=== PATIENT | female | born 1940 | race African-American/Black ===

== ENCOUNTER 2021-11-25 10:49 | Inpatient (IN) | payer MEDICARE, MEDICAID ==
[~2021-11-25] VITALS: Ht 157.5 cm; Wt 58.2 kg
[~2021-11-25 10:49] MED LIST: UNKNOWN MEDS
[2021-11-25] MEDS ORDERED: SODIUM CHLORIDE 0.9% 1,000 ML IV ONE (11:45)
[2021-11-25 12:04] LABS: BASOPHILS % 0.2 % (0.0-2.0); EOSINOPHILS % 1.5 % (0.0-5.0); HEMATOCRIT. 39.5 % (36.0-48.0); HEMOGLOBIN. 13.1 g/dL (12.0-16.0); LYMPHOCYTES % 12.4 % (20.0-50.0); MEAN CORPUSCULAR HEMOGLOBIN 24.3 pg (28.0-32.0); MEAN CORPUSCULAR VOLUME 73.3 fL (81.0-99.0); MEAN PLATELET VOLUME 7.8 fl (7.4-10.4); MONOCYTES % 7.9 % (2.0-8.0); PLATELET 314 x1000/uL (130-400); RED BLOOD CELL COUNT 5.39 mill/uL (4.2-5.4); RED CELL DISTRIBUTION WIDTH 21.8 % (11.6-14.6)
[2021-11-25 12:18] LABS: CHLORIDE 102 mEq/L (98-107)
[2021-11-25 12:22] LABS: PROTHROMBIN TIME 11.2 sec (9.6-11.0)
[2021-11-25] MEDS ORDERED: POTASSIUM CHLORIDE 20MEQ TABLET SR PO ONE (12:45)
[2021-11-25] MEDS ORDERED: ASPIRIN 325MG EC TABLET PO NR (13:30)
[2021-11-25] MEDS ORDERED: MORPHINE SULFATE 2 MG/ML CPJ (NOT FOR IM USE) IV PRN (15:30)
[2021-11-25] MEDS ORDERED: DIPHENHYDRAMINE 50MG/ML VIAL IV PRN (15:30)
[2021-11-25] MEDS ORDERED: ONDANSETRON HCL 4MG/2ML INJ IV PRN (15:30)
[2021-11-25] MEDS ORDERED: IPRATROPIUM/ALBUTEROL 0.5-3(2.5)MG/3ML NEB HHN PRN (15:30)
[2021-11-25] MEDS ORDERED: NALOXONE HCL 0.4MG/ML VIAL IV PRN (15:30)
[2021-11-25] MEDS ORDERED: CLONIDINE 0.1MG TABLET PO PRN (15:30)
[2021-11-25] MEDS: SODIUM CHLORIDE 0.9% 1,000 ML IV SCH (16:09)
[2021-11-25 17:43] LABS: TOTAL IRON BINDING CAPACITY 358 ug/dL (250-450)
[2021-11-25 17:56] LABS: FERRITIN 41 ng/mL (10-291)
[2021-11-25 18:24] LABS: FOLIC ACID (FOLATE) SERUM >20 ng/mL ng/mL (>5.38)
[2021-11-25] MEDS: PANTOPRAZOLE SODIUM 40 MG/VIAL IV SCH (18:45)
[2021-11-25] MEDS: DOCUSATE SODIUM 100MG CAPSULE PO SCH (18:45)
[2021-11-25 21:19] LABS: VITAMIN B12 SERUM 1283 pg/mL (211-911)
[2021-11-25] MEDS ORDERED: DEXTROSE 50% WATER 50ML SYRINGE IV PRN (22:45)
[2021-11-26 05:55] LABS: CHLORIDE 107 mEq/L (98-107)
[2021-11-26 05:56] LABS: BASOPHILS % 0.3 % (0.0-2.0); EOSINOPHILS % 2.8 % (0.0-5.0); HEMATOCRIT. 34.7 % (36.0-48.0); HEMOGLOBIN. 11.7 g/dL (12.0-16.0); LYMPHOCYTES % 16.3 % (20.0-50.0); MEAN CORPUSCULAR HEMOGLOBIN 24.6 pg (28.0-32.0); MEAN CORPUSCULAR VOLUME 73.2 fL (81.0-99.0); MEAN PLATELET VOLUME 8.1 fl (7.4-10.4); NEUTROPHILS % 72.6 % (40.0-76.0); PLATELET 252 x1000/uL (130-400); RED BLOOD CELL COUNT 4.74 mill/uL (4.2-5.4); RED CELL DISTRIBUTION WIDTH 21.6 % (11.6-14.6)
[2021-11-26] MEDS: INSULIN LISPRO (LOW DOSE) 100 UNITS/ML SUBCUT SCH ×4 (07:00→18:48)
[2021-11-26] MEDS: BLOOD SUGAR DIAGNOSTIC STRIP TEST SCH ×4 (07:07→18:48)
[2021-11-26] MEDS: PANTOPRAZOLE SODIUM 40 MG/VIAL IV SCH ×2 (07:25→18:48)
[2021-11-26] MEDS ORDERED: POTASSIUM CHLORIDE INJ 40 MEQ in DEXT 5% WATER 250 ML IV ONE (07:30)
[2021-11-26] MEDS ORDERED: KCL 20MEQ/100ML X 2 FOR TOTAL KCL 40MEQ/200ML IV SCH (09:00)
[2021-11-26 09:20] LABS: PHOSPHORUS 2.5 mg/dL (2.5-4.9)
[2021-11-26] MEDS ORDERED: LORAZEPAM 2MG/ML CPJ IV PRN (10:30)
[2021-11-26] MEDS ORDERED: POTASSIUM CHLORIDE 20MEQ TABLET SR PO NR (10:30)
[2021-11-26] MEDS: DOCUSATE SODIUM 100MG CAPSULE PO SCH ×2 (10:57→18:48)
[2021-11-26] MEDS: SODIUM CHLORIDE 0.9% 1,000 ML IV SCH (11:08)
[2021-11-26 13:40] LABS: CREATINE KINASE > 14000 IU/L (26-192)
[2021-11-26] MEDS: KCL 20MEQ/100ML X 2 FOR TOTAL KCL 40MEQ/200ML IV SCH ×2 (14:13→16:14)
[2021-11-27] VITALS (7 sets, daily range): BP systolic 97–128; BP diastolic 60–74
[2021-11-27] MEDS: PANTOPRAZOLE SODIUM 40 MG/VIAL IV SCH (06:00)
[2021-11-27] MEDS: INSULIN LISPRO (LOW DOSE) 100 UNITS/ML SUBCUT SCH ×4 (06:40→22:25)
[2021-11-27] MEDS: BLOOD SUGAR DIAGNOSTIC STRIP TEST SCH ×4 (06:40→21:35)
[2021-11-27 06:56] LABS: BASOPHILS % 0.3 % (0.0-2.0); EOSINOPHILS % 3.8 % (0.0-5.0); HEMATOCRIT. 36.6 % (36.0-48.0); HEMOGLOBIN. 12.2 g/dL (12.0-16.0); LYMPHOCYTES % 13.8 % (20.0-50.0); MEAN CORPUSCULAR HEMOGLOBIN 24.1 pg (28.0-32.0); MEAN CORPUSCULAR VOLUME 72.3 fL (81.0-99.0); MONOCYTES % 8.5 % (2.0-8.0); NEUTROPHILS % 73.6 % (40.0-76.0); PLATELET 275 x1000/uL (130-400); RED BLOOD CELL COUNT 5.07 mill/uL (4.2-5.4); RED CELL DISTRIBUTION WIDTH 21.3 % (11.6-14.6)
[2021-11-27 07:08] LABS: ANTI-NUCLEAR ANTIBODIES DIRECT Negative (Negative)
[2021-11-27 07:12] LABS: CHLORIDE 108 mEq/L (98-107)
[2021-11-27 07:20] LABS: PHOSPHORUS 2.2 mg/dL (2.5-4.9)
[2021-11-27] MEDS: DOCUSATE SODIUM 100MG CAPSULE PO SCH ×2 (08:44→17:06)
[2021-11-27] MEDS: SODIUM CHLORIDE 0.9% 1,000 ML IV SCH (12:00)
[2021-11-27] MEDS ORDERED: POTASSIUM PHOS,M-BASIC-D-BASIC 20 MMOL in DEXT 5% WATER 243.3333 ML IV NR (13:00)
[2021-11-27] MEDS: PANTOPRAZOLE 40MG DR TABLET PO SCH (21:35)
[2021-11-28] VITALS: BP 96/47
[2021-11-28] MEDS: SODIUM CHLORIDE 0.9% 1,000 ML IV SCH ×2 (03:30→21:47)
[2021-11-28 04:00] VITALS: BP 104/57
[2021-11-28] MEDS: BLOOD SUGAR DIAGNOSTIC STRIP TEST SCH ×4 (06:16→21:43)
[2021-11-28] MEDS: INSULIN LISPRO (LOW DOSE) 100 UNITS/ML SUBCUT SCH ×4 (06:16→21:00)
[2021-11-28] MEDS: PANTOPRAZOLE 40MG DR TABLET PO SCH ×2 (06:16→21:45)
[2021-11-28 07:35] LABS: BASOPHILS % 0.3 % (0.0-2.0); EOSINOPHILS % 2.8 % (0.0-5.0); HEMATOCRIT. 35.6 % (36.0-48.0); LYMPHOCYTES % 16.3 % (20.0-50.0); MEAN CORPUSCULAR HEMOGLOBIN 24.4 pg (28.0-32.0); MEAN CORPUSCULAR VOLUME 72.8 fL (81.0-99.0); MEAN PLATELET VOLUME 8.3 fl (7.4-10.4); MONOCYTES % 7.2 % (2.0-8.0); NEUTROPHILS % 73.4 % (40.0-76.0); PLATELET 289 x1000/uL (130-400); RED CELL DISTRIBUTION WIDTH 21.2 % (11.6-14.6)
[2021-11-28 07:46] LABS: CHLORIDE 106 mEq/L (98-107)
[2021-11-28 07:56] LABS: PHOSPHORUS 2.9 mg/dL (2.5-4.9)
[2021-11-28] MEDS: DOCUSATE SODIUM 100MG CAPSULE PO SCH ×2 (09:01→17:29)
[2021-11-28] MEDS ORDERED: DABI150C PO (10:02)
[2021-11-28] MEDS ORDERED: MULT-1195 MT (10:15)
[2021-11-28] MEDS ORDERED: METF-873 PO (10:15)
[2021-11-28] MEDS ORDERED: ROSU40TA PO (10:15)
[2021-11-28] MEDS ORDERED: CELE-84 PO (10:15)
[2021-11-28] MEDS ORDERED: CHOL400D7 PO (10:15)
[2021-11-28] MEDS ORDERED: CLOP75TA33 PO (10:15)
[2021-11-28] MEDS ORDERED: PANT40TA51 PO (10:15)
[2021-11-28] MEDS ORDERED: LIDOCAINE HCL 1% 20ML VIAL (Pyxis) INJ ONE (10:36)
[2021-11-28 12:00] VITALS: BP 134/64
[2021-11-28] MEDS ORDERED: POTASSIUM PHOS,M-BASIC-D-BASIC 20 MMOL in DEXT 5% WATER 243.3333 ML IV SCH (12:00)
[2021-11-28] MEDS ORDERED: IOHEXOL-350 100 ML BOTTLE ONE (13:04)
[2021-11-28] MEDS ORDERED: BISACODYL 10MG SUPP PR NR (14:15)
[2021-11-28] MEDS ORDERED: BISACODYL 5MG TABLET PO NR (14:15)
[2021-11-28] MEDS: DEXAMETHASONE 4MG/ML 1ML VIAL IV SCH ×2 (17:29→23:20)
[2021-11-28 20:00] VITALS: BP 93/58
[2021-11-28] MEDS: SENNOSIDES/DOCUSATE SOD 8.6/50MG TABLET PO SCH (21:00)
[2021-11-29] VITALS (48 sets, daily range): BP systolic 85–143; BP diastolic 38–80
[2021-11-29] MEDS: PANTOPRAZOLE 40MG DR TABLET PO SCH ×2 (05:44→18:28)
[2021-11-29] MEDS: INSULIN LISPRO (LOW DOSE) 100 UNITS/ML SUBCUT SCH ×4 (05:45→21:00)
[2021-11-29] MEDS: BLOOD SUGAR DIAGNOSTIC STRIP TEST SCH ×4 (05:45→21:00)
[2021-11-29] MEDS: DEXAMETHASONE 4MG/ML 1ML VIAL IV SCH ×2 (05:51→14:10)
[2021-11-29] MEDS ORDERED: GENTAMICIN SULF 40MG/ML 2ML VIAL ONE (06:37)
[2021-11-29] MEDS ORDERED: POLYMYXIN B SULFATE 500000 UNITS/VIAL ONE (06:37)
[2021-11-29] MEDS ORDERED: THROMBIN (BOVINE) 5000 UNITS/VIAL TOP ONE (06:37)
[2021-11-29] MEDS ORDERED: LIDOCAINE HCL/EPINEPHRINE 1%-EPI 1:100,000 20 ML VIAL ONE ×2 (06:37→06:38)
[2021-11-29] MEDS ORDERED: ROCURONIUM BROMIDE 10MG/ML VIAL 5ML IV ONE (07:41)
[2021-11-29] MEDS ORDERED: ALBUMIN HUMAN 25GM/100ML (25%) IV ONE (08:02)
[2021-11-29] MEDS ORDERED: FENTANYL CITRATE/PF 50MCG/ML 2ML VIAL ONE (08:17)
[2021-11-29] MEDS ORDERED: CALCIUM CHLORIDE 1GM/10ML SYR IV ONE (08:18)
[2021-11-29] MEDS ORDERED: CEFAZOLIN SODIUM 1000MG/VIAL ONE ×2 (08:43)
[2021-11-29] MEDS ORDERED: DEXAMETHASONE 4MG/ML 1ML VIAL ONE ×2 (08:43→13:56)
[2021-11-29] MEDS: DOCUSATE SODIUM 100MG CAPSULE PO SCH ×2 (09:00→17:00)
[2021-11-29] MEDS ORDERED: NEOSTIGMINE METHYLSULFATE 1MG/ML 10 ML VIAL ONE (09:09)
[2021-11-29] MEDS ORDERED: GLYCOPYRROLATE 0.2 MG/ML 2ML VIAL ONE ×2 (09:09)
[2021-11-29] MEDS ORDERED: HYDRALAZINE 20MG/ML VIAL ONE (09:26)
[2021-11-29] MEDS: METOPROLOL TARTRATE 5MG/5ML VIAL IV NR (09:52)
[2021-11-29] MEDS ORDERED: NICARDIPINE 100 MG in SODIUM CHLORIDE 0.9% 60 ML IV PRN (10:00)
[2021-11-29] MEDS ORDERED: ALBUMIN HUMAN 25GM/100ML (25%) IV NR (10:45)
[2021-11-29] MEDS ORDERED: FENTANYL CITRATE/PF 2,500 MCG in SODIUM CHLORIDE 0.9% 200 ML IV PRN (10:45)
[2021-11-29] MEDS ORDERED: PHENYLEPHRINE 100 MG in DEXT 5% WATER 240 ML IV PRN (10:45)
[2021-11-29] MEDS ORDERED: MIDAZOLAM HCL 100 MG in SODIUM CHLORIDE 0.9% 80 ML IV PRN (10:45)
[2021-11-29 11:40] LABS: BG BASE EXCESS -6.3 mmol/L (-2.0-2.0); BG CARBOXYHEMOGLOBIN 0.3 % (0.5-1.5); BG DEOXYHEMOGLOBIN 0.7 % (0.0-5.0); BG FRACTION INSPIRED OXYGEN 100; BG HCO3 ACT 17.9 mmol/L (22.0-26.0); BG METHEMOGLOBIN 0.4 % (0.0-1.5); BG OXYGEN SATURATION 99.3 % (92.0-98.5); BG OXYHEMOGLOBIN 98.6 % (94.0-97.0); BG SAMPLE SITE ALINE; BG TOTAL HEMOGLOBIN 10.5 g/dL (12.0-18.0); BG VENT MODE VENT - CPAP
[2021-11-29] MEDS ORDERED: SODIUM BICARBONATE 8.4% 1 MEQ/ML 50ML SYR IV SCH (12:00)
[2021-11-29] MEDS: MORPHINE SULFATE 4 MG/ML CPJ (NOT FOR IM USE) IV PRN ×2 (12:28→20:36)
[2021-11-29 13:53] LABS: BG BASE EXCESS -2.7 mmol/L (-2.0-2.0); BG CARBOXYHEMOGLOBIN 0.2 % (0.5-1.5); BG DEOXYHEMOGLOBIN 2.8 % (0.0-5.0); BG FRACTION INSPIRED OXYGEN 32; BG HCO3 ACT 21.9 mmol/L (22.0-26.0); BG METHEMOGLOBIN 0.6 % (0.0-1.5); BG OXYGEN SATURATION 97.2 % (92.0-98.5); BG OXYHEMOGLOBIN 96.4 % (94.0-97.0); BG PCO2 36.8 mmHg (35.0-45.0); BG PH 7.392 (7.350-7.450); BG PO2 109.4 mmHg (75.0-100.0); BG SAMPLE SITE ALINE; BG TOTAL HEMOGLOBIN 9.4 g/dL (12.0-18.0); BG VENT MODE NASAL CANNULA
[2021-11-29] MEDS ORDERED: CEFAZOLIN SODIUM 1000MG/VIAL IV SCH (14:00)
[2021-11-29] MEDS: CEFAZOLIN 1000MG PREMIX 50 ML IV SCH ×2 (14:28→22:05)
[2021-11-29 15:04] LABS: MEAN CORPUSCULAR HEMOGLOBIN 24.6 pg (28.0-32.0); MEAN CORPUSCULAR VOLUME 74.5 fL (81.0-99.0); MEAN PLATELET VOLUME 7.9 fl (7.4-10.4); PLATELET 211 x1000/uL (130-400); RED BLOOD CELL COUNT 3.83 mill/uL (4.2-5.4); RED CELL DISTRIBUTION WIDTH 21.1 % (11.6-14.6)
[2021-11-29 15:06] LABS: HEMATOCRIT. 28.5 % (36.0-48.0); HEMOGLOBIN. 9.4 g/dL (12.0-16.0)
[2021-11-29 15:40] LABS: PLATELET ESTIMATE NORMAL
[2021-11-29 16:31] LABS: CHLORIDE 110 mEq/L (98-107)
[2021-11-29] MEDS: DEXT 5%/LACTATED RINGERS 1,000 ML IV SCH (17:18)
[2021-11-29 17:30] LABS: PHOSPHORUS 3.2 mg/dL (2.5-4.9)
[2021-11-29] MEDS: KCL 20MEQ/100ML PREMIX 100 ML IV SCH ×2 (18:16→21:17)
[2021-11-29] MEDS: SENNOSIDES/DOCUSATE SOD 8.6/50MG TABLET PO SCH (22:05)
[2021-11-30] VITALS (53 sets, daily range): BP systolic 90–125; BP diastolic 42–74
[2021-11-30] MEDS: DEXT 5%/LACTATED RINGERS 1,000 ML IV SCH ×2 (03:59→12:20)
[2021-11-30] MEDS: ACETAMINOPHEN 325MG TABLET PO PRN ×2 (04:00→15:13)
[2021-11-30 04:13] LABS: HEMOGLOBIN. 9.2 g/dL (12.0-16.0); MEAN CORPUSCULAR HEMOGLOBIN 24.7 pg (28.0-32.0); MEAN CORPUSCULAR VOLUME 74.9 fL (81.0-99.0); MEAN PLATELET VOLUME 8.1 fl (7.4-10.4); PLATELET 231 x1000/uL (130-400); RED BLOOD CELL COUNT 3.74 mill/uL (4.2-5.4); RED CELL DISTRIBUTION WIDTH 20.9 % (11.6-14.6)
[2021-11-30 04:16] LABS: CHLORIDE 110 mEq/L (98-107)
[2021-11-30 04:21] LABS: PHOSPHORUS 2.8 mg/dL (2.5-4.9)
[2021-11-30] MEDS: BLOOD SUGAR DIAGNOSTIC STRIP TEST SCH ×4 (05:38→20:20)
[2021-11-30] MEDS: CEFAZOLIN 1000MG PREMIX 50 ML IV SCH ×2 (06:11→15:05)
[2021-11-30] MEDS: INSULIN LISPRO (LOW DOSE) 100 UNITS/ML SUBCUT SCH ×4 (06:11→20:20)
[2021-11-30] MEDS ORDERED: POTASSIUM CHLORIDE INJ 40 MEQ in DEXT 5% WATER 250 ML IV ONE (08:30)
[2021-11-30] MEDS: PANTOPRAZOLE SODIUM 40 MG/VIAL IV SCH (08:34)
[2021-11-30] MEDS: DOCUSATE SODIUM 100MG CAPSULE PO SCH ×2 (08:37→17:50)
[2021-11-30] MEDS: METOPROLOL TARTRATE 5MG/5ML VIAL IV NR (09:25)
[2021-11-30] MEDS: KCL 20MEQ/100ML X 2 FOR TOTAL KCL 40MEQ/200ML IV SCH ×2 (09:56→12:19)
[2021-11-30] MEDS ORDERED: POTASSIUM CHLORIDE 20MEQ TABLET SR PO SCH (10:00)
[2021-11-30] MEDS ORDERED: THROAT LOZENGES-BENZOCAINE/MENTH/CETYLPYRD CL LOZENGES MM PRN (10:00)
[2021-11-30 10:32] LABS: PLATELET ESTIMATE NORMAL
[2021-11-30] MEDS ORDERED: PHENOL/SODIUM PHENOLATE 1.4% SRPAY 177ML MM PRN (11:00)
[2021-11-30] MEDS: SENNOSIDES/DOCUSATE SOD 8.6/50MG TABLET PO SCH (20:20)
[2021-12-01] VITALS (12 sets, daily range): BP systolic 81–120; BP diastolic 32–78
[2021-12-01] MEDS: ACETAMINOPHEN 325MG TABLET PO PRN ×4 (01:36→22:46)
[2021-12-01] MEDS: DEXT 5%/LACTATED RINGERS 1,000 ML IV SCH ×3 (01:36→18:58)
[2021-12-01 05:58] LABS: BASOPHILS % 0.1 % (0.0-2.0); EOSINOPHILS % 2.3 % (0.0-5.0); HEMATOCRIT. 27.9 % (36.0-48.0); HEMOGLOBIN. 9.1 g/dL (12.0-16.0); LYMPHOCYTES % 12.2 % (20.0-50.0); MEAN CORPUSCULAR HEMOGLOBIN 24.7 pg (28.0-32.0); MEAN CORPUSCULAR VOLUME 76.2 fL (81.0-99.0); MEAN PLATELET VOLUME 8.2 fl (7.4-10.4); NEUTROPHILS % 76.4 % (40.0-76.0); PLATELET 190 x1000/uL (130-400); RED BLOOD CELL COUNT 3.66 mill/uL (4.2-5.4); RED CELL DISTRIBUTION WIDTH 21.3 % (11.6-14.6)
[2021-12-01] MEDS: BLOOD SUGAR DIAGNOSTIC STRIP TEST SCH ×3 (06:18→21:00)
[2021-12-01 06:26] LABS: CHLORIDE 110 mEq/L (98-107)
[2021-12-01 06:35] LABS: PHOSPHORUS 1.9 mg/dL (2.5-4.9)
[2021-12-01] MEDS: INSULIN LISPRO (LOW DOSE) 100 UNITS/ML SUBCUT SCH ×4 (06:39→21:46)
[2021-12-01] MEDS: DOCUSATE SODIUM 100MG CAPSULE PO SCH ×3 (08:03→18:57)
[2021-12-01] MEDS: PANTOPRAZOLE SODIUM 40 MG/VIAL IV SCH (08:03)
[2021-12-01] MEDS ORDERED: MAGNESIUM 2 G PREMIX 50 ML IV SCH (09:00)
[2021-12-01] MEDS ORDERED: POTASSIUM PHOS,M-BASIC-D-BASIC 20 MMOL in DEXT 5% WATER 243.3333 ML IV SCH (09:00)
[2021-12-01] MEDS ORDERED: DOCUSATE SODIUM 100MG CAPSULE PO SCH (17:00)
[2021-12-01] MEDS: SENNOSIDES/DOCUSATE SOD 8.6/50MG TABLET PO SCH (21:42)
[2021-12-02] VITALS: BP 117/54
[2021-12-02 04:00] VITALS: BP 110/42
[2021-12-02] MEDS: DEXT 5%/LACTATED RINGERS 1,000 ML IV SCH ×2 (04:27→15:15)
[2021-12-02] MEDS: ACETAMINOPHEN 325MG TABLET PO PRN (04:41)
[2021-12-02] MEDS: BLOOD SUGAR DIAGNOSTIC STRIP TEST SCH ×3 (06:20→16:40)
[2021-12-02] MEDS: INSULIN LISPRO (LOW DOSE) 100 UNITS/ML SUBCUT SCH ×3 (06:20→17:10)
[2021-12-02 06:36] LABS: BASOPHILS % 0.1 % (0.0-2.0); HEMATOCRIT. 32.9 % (36.0-48.0); HEMOGLOBIN. 10.7 g/dL (12.0-16.0); LYMPHOCYTES % 15.2 % (20.0-50.0); MEAN CORPUSCULAR HEMOGLOBIN 25.1 pg (28.0-32.0); MEAN CORPUSCULAR VOLUME 76.8 fL (81.0-99.0); MONOCYTES % 8.6 % (2.0-8.0); NEUTROPHILS % 71.1 % (40.0-76.0); PLATELET 223 x1000/uL (130-400); RED BLOOD CELL COUNT 4.28 mill/uL (4.2-5.4); RED CELL DISTRIBUTION WIDTH 20.8 % (11.6-14.6)
[2021-12-02 07:48] LABS: CHLORIDE 105 mEq/L (98-107); PHOSPHORUS 2.4 mg/dL (2.5-4.9)
[2021-12-02 08:00] VITALS: BP 118/63
[2021-12-02] MEDS: DOCUSATE SODIUM 100MG CAPSULE PO SCH ×2 (09:00→17:00)
[2021-12-02] MEDS ORDERED: DIAZEPAM 5 MG TABLET PO NR (09:00)
[2021-12-02] MEDS: PANTOPRAZOLE SODIUM 40 MG/VIAL IV SCH (10:00)
[2021-12-02] MEDS ORDERED: POTASSIUM CHLORIDE 20MEQ/PACKET PO NR (10:15)
[2021-12-02] MEDS ORDERED: POTASSIUM-SODIUM PHOSPHATE POWDER PACKET PO NR (10:15)
[2021-12-02 12:00] VITALS: BP 145/64
[2021-12-02 16:00] VITALS: BP 104/42
[2021-12-02 16:41] VITALS: BP 101/53
== END 2021-12-02 17:50 | disposition home or self-care (01) | DRG 321 ==
LOC: ER 10:49 → EDBEDREQ 14:23 → MICUSO 14:35 → EDBEDREQTM 14:55 → EDBEDREQ 14:55 → 7EST 11-26 09:20 → MICUNO 11-29 11:50 → 7EST 12-01 12:45
PROVIDERS: ADMIT Internal Medicine; ATTEND Internal Medicine
PROC: 02HV33Z Insertion of Infusion Device into Superior Vena Cava, Percutaneous Approach (ICD-10-PCS; principal; 2021-11-28)
PROC: 0RG20A0 Fusion of 2 or more Cervical Vertebral Joints with Interbody Fusion Device, Anterior Approach, Anterior Column, Open Approach (ICD-10-PCS; 2021-11-28)
PROC: 0RB30ZZ Excision of Cervical Vertebral Disc, Open Approach (ICD-10-PCS; 2021-11-28)
PROC: B548ZZA Ultrasonography of Superior Vena Cava, Guidance (ICD-10-PCS; 2021-11-28)
PROC: B5181ZA Fluoroscopy of Superior Vena Cava using Low Osmolar Contrast, Guidance (ICD-10-PCS; 2021-11-28)
PROC: 01N10ZZ Release Cervical Nerve, Open Approach (ICD-10-PCS; 2021-11-28)
DX: M48.02 Spinal stenosis, cervical region (principal); J95.821 Acute postprocedural respiratory failure; G82.50 Quadriplegia, unspecified; E44.0 Moderate protein-calorie malnutrition; M50.022 Cervical disc disorder at C5-C6 level with myelopathy; M62.82 Rhabdomyolysis; M48.04 Spinal stenosis, thoracic region; R47.01 Aphasia; M47.12 Other spondylosis with myelopathy, cervical region; N17.9 Acute kidney failure, unspecified; E86.9 Volume depletion, unspecified; D64.9 Anemia, unspecified; E11.9 Type 2 diabetes mellitus without complications; E87.6 Hypokalemia; I71.4 Abdominal aortic aneurysm, without rupture; I10 Essential (primary) hypertension; I25.10 Atherosclerotic heart disease of native coronary artery without angina pectoris; K59.00 Constipation, unspecified; Z20.822 Contact with and (suspected) exposure to COVID-19; M47.814 Spondylosis without myelopathy or radiculopathy, thoracic region; R53.81 Other malaise; R74.01 Elevation of levels of liver transaminase levels; D50.9 Iron deficiency anemia, unspecified; M50.122 Cervical disc disorder at C5-C6 level with radiculopathy; Z87.891 Personal history of nicotine dependence; Z95.1 Presence of aortocoronary bypass graft; Z82.49 Family history of ischemic heart disease and other diseases of the circulatory system; Z83.3 Family history of diabetes mellitus; I25.2 Old myocardial infarction; Z88.0 Allergy status to penicillin; Z95.820 Peripheral vascular angioplasty status with implants and grafts
CPT/HCPCS: 31500; 36415; 36573; 36600; 70551; 71045; 71275; 72040; 72141; 72146; 72148; 74018; 74174; 74176; 76000; 76700; 80048; 80053; 80076; 82375; 82550; 82607; 82728; 82746; 82805; 82962; 83036; 83540; 83550; 83605; 83735; 83880; 84100; 84484; 85025; 85044; 86038; 86160; 86850; 86900; 87426; 88311; 92610; 93005; 93306; 93970; 94002; 95925; 95926; 95928; 95929; 97116; 97162; 97164; 97166; 97168; 97535; 99291; C1713; C1725; C9113; J0360; J0690; J1100; J1580; J1815; J2060; J2270; J2405; J2710; J3010; J3475; J3480; J3490; J7030; J7060; J7121; L0172; P9047; Q9967; C1762